=== PATIENT | female | born 1965 | race Caucasian/White ===

== ENCOUNTER 2018-08-16 09:48 | Emergency (ER) | payer OTHER ==
[~2018-08-16] VITALS: Ht 154.9 cm; Wt 90.9 kg
[~2018-08-16 09:48] MED LIST: GLIP5 PO; METF-960 PO; UNK BP MED PO
[2018-08-16] MEDS ORDERED: IBUPROFEN 600 MG TABLET PO ONE (10:45)
[2018-08-16 10:54] VITALS: BP 143/83
== END 2018-08-16 11:11 | disposition home or self-care (01) ==
LOC: EMS 09:48
DX: L60.0 Ingrowing nail (principal); E11.9 Type 2 diabetes mellitus without complications; I10 Essential (primary) hypertension; Z79.84 Long term (current) use of oral hypoglycemic drugs